=== PATIENT | female | born 1950 ===

== ENCOUNTER 2023-06-26 07:57 | Day surgery (SDC) | payer OTHER ==
[~2023-06-26] VITALS: Ht 154.9 cm; Wt 68.9 kg
== END 2023-06-26 16:10 | disposition home or self-care (01) ==
LOC: CIR.AMB 07:57
PROVIDERS: ATTEND Surgery
DX: K43.6 Other and unspecified ventral hernia with obstruction, without gangrene (principal); Z88.2 Allergy status to sulfonamides; Z20.822 Contact with and (suspected) exposure to COVID-19
CPT/HCPCS: 49592; C1781